=== PATIENT | female | born 1950 | race Caucasian/White ===

== ENCOUNTER 2022-09-08 17:18 | Emergency (ER) | payer BC, MEDICAID ==
[~2022-09-08] VITALS: Ht 167.6 cm; Wt 50.0 kg
[2022-09-08] MEDS ORDERED: SODIUM CHLORIDE 0.9% 1,000 ML IV ONE (17:45)
[2022-09-08 18:24] LABS: Basophils # (auto) 0.2 10 ^3/uL (0-0.2); Basophils % (auto) 1.3 % (0.0-2.0); Eosinophils # (auto) 0.1 10 ^3/uL (0-0.8); Eosinophils % (auto) 0.8 % (0.0-7.0); Hematocrit 38.6 % (36.0-46.0); Hemoglobin 12.4 g/dL (12.2-16.2); Lymphocytes # (auto) 1.7 10 ^3/uL (0.4-5.4); Lymphocytes % (auto) 11.7 % (10.0-50.0); Mean Corpuscular Hemoglobin 29.1 pg (28.0-32.0); Mean Corpuscular Hgb Conc. 32.2 g/dL (32.0-36.0); Mean Corpuscular Volume 90.3 fL (80.0-100.0); Monocytes # (auto) 1.2 10 ^3/uL (0-1.3); Monocytes % (auto) 8.7 % (0.0-12.0); Neutrophils % (auto) 77.5 % (37.0-80.0); Nucleated Red Blood Cells % 0.1 %; Red Blood Cells 4.27 10^6/uL (4.0-5.20); White Blood Cell 14.2 10^3/uL (4.4-10.8)
[2022-09-08 18:32] LABS: INR 1.41 (0.9-1.15); Partial Thromboplastin Time 34.7 sec (24.6-33.4)
[2022-09-08 19:00] LABS: Albumin 2.7 g/dL (3.4-5.0); Blood Urea Nitrogen 28 mg/dL (7-18); Calcium 10.1 mg/dL (8.5-10.1); Chloride 108 mmol/L (98-107); Glucose 83 mg/dL (74-106); Potassium 3.9 mmol/L (3.5-5.1); Sodium 143 mmol/L (136-145)
[2022-09-08 19:06] LABS: Alanine Aminotransferase 37 U/L (13-56); Alkaline Phosphatase 253 U/L (45-117); Anion Gap 12 (5-15); Aspartate Aminotransferase 156 U/L (15-37); BUN/Creatinine Ratio 32.6 (10.0-20.0); Bilirubin, Total 1.2 mg/dL (0.2-1.0); Blood Alcohol < 3.0 mg/dL (0-5); Carbon Dioxide 23 mmol/L (21-32); GFR African American 84 mL/min; GFR Non-African American 69 mL/min; Total Protein 5.3 g/dL (6.4-8.2)
[2022-09-09] MEDS ORDERED: SODIUM CHLORIDE 0.9% 1,000 ML IV ONE ×2 (00:30)
[2022-09-09 01:47] LABS: Urine Bacteria NONE SEEN /hpf (None Seen); Urine Blood Negative /uL (Negative); Urine Hyaline Cast FEW /lpf (0 - 2); Urine Mucus FEW (None Seen); Urine Specific Gravity 1.022 (1.001-1.035); Urine WBC 36 /hpf (0 - 5)
[2022-09-09 02:02] LABS: Alcohol, Urine < 3.0 mg/dL (0-10); Amphetamine Screen, Urine NEGATIVE (NEGATIVE); Barbiturate Scree,Urine NEGATIVE (NEGATIVE); Benzodiazephine Screen, Urine POSITIVE (NEGATIVE); Cocaine Screen, Urine NEGATIVE (NEGATIVE); Opiate Scree,Urine NEGATIVE (NEGATIVE); Phencyclidine Screen, Urine NEGATIVE (NEGATIVE)
[2022-09-09 02:11] LABS: Cannabinoid Screen, Urine POSITIVE (NEGATIVE)
[2022-09-09] MEDS ORDERED: cefTRIAXone 1GM/50ML D5W 50 ML IV ONE (03:00)
[2022-09-09] MEDS ORDERED: ENOXAPARIN SOD 100 MG/1 ML SYRINGE SC SCH (03:00)
[2022-09-09] MEDS ORDERED: LEVO500T91 PO (06:56)
[2022-09-09 07:19] LABS: Basophils # (auto) 0.1 10 ^3/uL (0-0.2); Basophils % (auto) 0.4 % (0.0-2.0); Eosinophils # (auto) 0 10 ^3/uL (0-0.8); Eosinophils % (auto) 0.3 % (0.0-7.0); Hematocrit 39.3 % (36.0-46.0); Hemoglobin 12.7 g/dL (12.2-16.2); Lymphocytes # (auto) 1.5 10 ^3/uL (0.4-5.4); Lymphocytes % (auto) 10.6 % (10.0-50.0); Mean Corpuscular Hemoglobin 29.1 pg (28.0-32.0); Mean Corpuscular Hgb Conc. 32.3 g/dL (32.0-36.0); Mean Corpuscular Volume 90.2 fL (80.0-100.0); Monocytes # (auto) 1.3 10 ^3/uL (0-1.3); Neutrophils # (auto) 11.4 10 ^3/uL (1.6-8.6); Neutrophils % (auto) 79.7 % (37.0-80.0); Red Blood Cells 4.36 10^6/uL (4.0-5.20); Red Cell Distribution Width 21.5 % (11.8-14.3); White Blood Cell 14.3 10^3/uL (4.4-10.8)
[2022-09-09] MEDS ORDERED: ENOXAPARIN SOD 60 MG/0.6 ML SYRINGE SC SCH (17:00)
[2022-09-09 18:23] VITALS: BP 117/59
== END 2022-09-09 18:45 ==
LOC: EDBD 17:18 → ER 17:20
DX: R53.1 Weakness (principal); R62.7 Adult failure to thrive; I10 Essential (primary) hypertension; I25.2 Old myocardial infarction; Z68.1 Body mass index [BMI] 19.9 or less, adult; Z85.89 Personal history of malignant neoplasm of other organs and systems; Z90.710 Acquired absence of both cervix and uterus; Z88.5 Allergy status to narcotic agent
CPT/HCPCS: 36415; 70450; 71045; 72125; 80053; 80307; 80320; 81001; 82140; 84484; 85025; 85610; 85730; 86850; 86900; 86901; 87086; 87088; 93005; 96361; 96365; 96372; 99285; J0696; J1650; J7030